=== PATIENT | female | born 1965 | race Caucasian/White ===

== ENCOUNTER 2017-09-17 22:01 | Emergency (ER) | payer SELFPAY ==
[2017-09-18] MEDS: SOD CHLORIDE 0.9% 1,000 ML IV (00:05)
[2017-09-18] MEDS: SOD CHLORIDE 0.9% 100 ML (00:22)
[2017-09-18] MEDS: IOHEXOL 100 ML (00:23)
[2017-09-18] MEDS: IOHEXOL 350MG/ML 50 ML BTL (00:23)
[2017-09-18 00:26] LABS: ADD MAN DIFF? NO
[2017-09-18 00:28] LABS: BASOPHILS % 0.5 % (0.0-2.0); EOSINOPHILS # 0.3 10^3/ul (0.0-0.5); EOSINOPHILS % 3.2 % (0.0-7.0); HEMATOCRIT 39.9 % (37.0-47.0); HEMOGLOBIN 13.1 g/dl (12.0-16.0); LYMPHOCYTES # 2.8 10^3/ul (0.8-2.9); LYMPHOCYTES % 34.1 % (15.0-51.0); MEAN CORPUSCULAR HGB CONC 32.8 g/dl (32.0-37.0); MEAN CORPUSCULAR VOLUME 88.5 fl (82.0-101.0); MONOCYTE # 0.5 10^3/ul (0.3-0.9); MONOCYTES % 5.8 % (0.0-11.0); NEUTROPHIL # 4.7 10^3/ul (1.6-7.5); PLATELET COUNT 252 10^3/UL (140-415); RED BLOOD COUNT 4.51 10^6/ul (4.20-5.40); RED CELL DISTRIBUTION WIDTH 13.4 % (11.5-14.5)
[2017-09-18 00:28] LABS: WHITE BLOOD COUNT 8.3 10^3/ul (4.8-10.8)
[2017-09-18 00:51] LABS: ALANINE AMINOTRANSFERASE 42 IU/L (13-69); ALBUMIN 3.7 g/dl (3.3-4.9); ALBUMIN/GLOBULIN RATIO 1.05; ALKALINE PHOSPHATASE 92 IU/L (42-121); ANION GAP 12 (8-16); ASPARTATE AMINO TRANSFERASE 20 IU/L (15-46); BILIRUBIN,INDIRECT 0.5 mg/dl (0-1.1); BILIRUBIN,TOTAL 0.5 mg/dl (0.2-1.3); BLOOD UREA NITROGEN 25 mg/dl (7-20); CALCIUM 9.2 mg/dl (8.4-10.2); CARBON DIOXIDE 29 mmol/L (21-31); CHLORIDE 103 mmol/L (97-110); CREATININE 0.87 mg/dl (0.44-1.00); GLUCOSE 111 mg/dl (70-220); LIPASE 65 U/L (23-300); POTASSIUM 3.6 mmol/L (3.5-5.1); SODIUM 140 mmol/L (135-144); TOTAL PROTEIN 7.2 g/dl (6.1-8.1)
[2017-09-18 00:57] LABS: INR 0.91; PROTIME 12.3 Sec (11.9-14.9)
[2017-09-18 01:05] LABS: TROPONIN-I < 0.012 ng/ml (0.00-0.12)
== END 2017-09-18 03:08 | disposition home or self-care (01) ==
LOC: E/R 22:01
DX: R06.02 Shortness of breath (principal); I10 Essential (primary) hypertension; R40.2142 Coma scale, eyes open, spontaneous, at arrival to emergency department; R40.2362 Coma scale, best motor response, obeys commands, at arrival to emergency department; R40.2252 Coma scale, best verbal response, oriented, at arrival to emergency department; Z87.891 Personal history of nicotine dependence
CPT/HCPCS: 36415; 71045; 71275; 80053; 83690; 84484; 85025; 85610; 93005; 99285-25